=== PATIENT | female | born 1990 | race American Indian/Alaskan Native ===

== ENCOUNTER 2020-12-30 20:33 | Outpatient (CLI) | payer OTHER ==
[2020-12-30 22:49] LABS: Bacteria,Urine 2+ /HPF (Negative); Bilirubin,Urine NEG (Negative); Blood,Urine NEG (Negative); Color,Urine Yellow (Yellow); Mucus,Urine FEW /HPF; Protein,Urine <15 mg/dL mg/dL (Negative); Urobilinogen,Urine < 2.0 mg/dL (<2.0)
[2020-12-30 22:54] VITALS: BP 140/87
[2020-12-30] MEDS ORDERED: LIDOCAINE-MPF (1%) 10 MG/1 ML VIAL 5 ML INFILTRATI ONE (23:51)
== END 2020-12-30 21:40 | disposition home or self-care (01) ==
LOC: TRG 20:33 → APU 21:07 → TRG 21:40
PROVIDERS: ATTEND Obstetrics & Gynecology
DX: O26.893 Other specified pregnancy related conditions, third trimester (principal); R10.9 Unspecified abdominal pain; O48.0 Post-term pregnancy; O13.3 Gestational [pregnancy-induced] hypertension without significant proteinuria, third trimester; Z3A.40 40 weeks gestation of pregnancy
CPT/HCPCS: 59025; 81001; 87086; 96372; J0696

== ENCOUNTER 2021-01-17 19:04 | Observation (INO) | payer OTHER ==
[2021-01-17] MEDS ORDERED: NALOXONE 0.4 MG/1 ML INJ IV PRN (19:13)
[2021-01-17] MEDS ORDERED: WITCH HAZEL/ GLYCERIN PAD TP PRN (19:13)
[2021-01-17] MEDS ORDERED: LANOLIN/ZINC/DIMETHICONE (LANSINOH) 7 GM TP PRN (19:13)
[2021-01-17] MEDS ORDERED: ONDANSETRON 4 MG/2 ML INJ IV PRN (19:14)
[2021-01-17] MEDS ORDERED: MAGNESIUM SULFATE 4 GM/100 ML BAG IV ONE ×2 (19:14→21:46)
[2021-01-17] MEDS ORDERED: MORPHINE 4 MG/1 ML INJ IV PRN (19:14)
[2021-01-17] MEDS ORDERED: oxyCODONE /ACETAMINOPHEN 5-325MG TAB PO PRN (19:14)
[2021-01-17] MEDS ORDERED: LACTATED RINGERS 1,000 ML ONE (19:56)
[2021-01-17] MEDS ORDERED: MAGNESIUM SULFATE 40GM/1000ML 40 GM/1,000 ML BAG IV SCH (20:00)
[2021-01-17 21:19] LABS: Hematocrit 36.9 % (30.3-42.9); Hemoglobin 12.1 gm/dl (10.1-14.3); Mean Corpuscular HGB Conc 33 % (30-34); Mean Corpuscular Volume 90 fl (79-97); Platelet Count 290 K/mm3 (140-440); Red Blood Count 4.09 M/mm3 (3.65-5.03); Red Cell Distribution Width 15.7 % (13.2-15.2)
[2021-01-17 21:41] LABS: Alanine Aminotransferase 13 units/L (7-56); Albumin 3.7 g/dL (3.9-5); BUN/Creatinine Ratio 14; Blood Urea Nitrogen 11 mg/dL (7-17); Calcium 8.3 mg/dL (8.4-10.2); Hemolysis Index 135; Uric Acid 7.2 mg/dL (3.5-7.6)
[2021-01-17] MEDS ORDERED: BENZOCAINE/MENTHOL 20/0.5% TOP SPRAY 56 GM TP PRN (23:37)
[2021-01-18 00:46] LABS: Mucus,Urine FEW /HPF; WBC,Urine < 1.0 /HPF (0.0-6.0)
[2021-01-18] MEDS: IBUPROFEN 600 MG TAB PO PRN ×2 (04:46→10:11)
[2021-01-18] MEDS ORDERED: LACTATED RINGERS 1,000 ML ONE (08:39)
[2021-01-18] MEDS ORDERED: PRENATAL VIT27-FE FUMARATE-FOLIC ACID VIT TAB PO SCH (10:00)
[2021-01-18 11:10] LABS: Alanine Aminotransferase 11 units/L (7-56); Albumin 3.8 g/dL (3.9-5); Blood Urea Nitrogen 9 mg/dL (7-17); Hemolysis Index 13
[2021-01-18 11:14] LABS: BUN/Creatinine Ratio 13
[2021-01-18] MEDS ORDERED: ACETAMINOPHEN 500 MG TAB PO PRN (11:53)
[2021-01-18 18:37] VITALS: BP 166/96
== END 2021-01-18 18:43 | disposition left against medical advice (07) ==
LOC: UNDOADMOB 19:04 → 3A 19:04 → LD 19:44
PROVIDERS: ADMIT Obstetrics & Gynecology; ATTEND Obstetrics & Gynecology
DX: O90.89 Other complications of the puerperium, not elsewhere classified (principal); O16.5 Unspecified maternal hypertension, complicating the puerperium; R03.0 Elevated blood-pressure reading, without diagnosis of hypertension; Z98.891 History of uterine scar from previous surgery
CPT/HCPCS: 36415; 80053; 81015; 83735; 84550; 85027; G0378; G0379; J3475; J7120; J3490